=== PATIENT | male | born 1960 | race Caucasian/White ===

== ENCOUNTER 2019-04-12 17:38 | Emergency (ER) | payer OTHER ==
[~2019-04-12] VITALS: Ht 165.1 cm; Wt 59.9 kg
--- NOTE | 2019-04-12 18:38 | NUR ---
PT IS IN ROOM #2B. DR WILL EVALUATED THE PT.
[2019-04-12] MEDS ORDERED: ONDANSETRON ODT 4 MG TAB.RAPDIS ONE (18:58)
[2019-04-12] MEDS ORDERED: ONDANSETRON ODT 4 MG TAB.RAPDIS SL ONE (19:00)
[2019-04-12] MEDS ORDERED: DICYCLOMINE HCL 20 MG TABLET PO ONE (19:00)
[2019-04-12 19:08] LABS: *BLOOD, URINE NEGATIVE (NEGATIVE); *CLARITY,URINE SLIGHTLY CLOUDY (CLEAR); *COLOR,URINE YELLOW (YELLOW); *KETONES,URINE NEGATIVE (NEGATIVE); LEUKOCYTE ESTERASE ,URINE NEGATIVE (NEGATIVE); NITRITE, URINE NEGATIVE (NEGATIVE); PH,URINE 5.5 (5.0-8.0); UGLUCOSE NEGATIVE (NEGATIVE)
[2019-04-12 19:09] LABS: *BILIRUBIN,URIN 1+ (NEGATIVE)
[2019-04-12 19:10] LABS: BASOPHILS # (AUTO) 0.1 K/uL (0.0-8.0); EOSINOPHILS # (AUTO) 0.1 K/uL (0.0-0.7); EOSINOPHILS % (AUTO) 1.7 % (0.0-7.0); HEMATOCRIT 45.9 % (36.7-47.1); HEMOGLOBIN 15.6 g/dL (12.5-16.3); LYMPHOCYTES % (AUTO) 18.1 % (20.5-51.5); MEAN CORPUSCULAR HEMOGLOBIN 31.5 uug (23.8-33.4); MEAN CORPUSCULAR HGB CONC 34 g/dL (32.5-36.3); MONOCYTES # (AUTO) 0.8 K/uL (2.0-10.0); MONOCYTES % (AUTO) 14.6 % (0.0-11.0); NEUTROPHILS # (AUTO) 3.6 K/uL (1.8-8.9); NEUTROPHILS % (AUTO) 64.6 % (38.5-71.5); PLATELET COUNT (AUTO) 245 K/uL (152-348); RED BLOOD CELL COUNT(AUTO) 4.94 MIL/uL (4.06-5.63); WHITE BLOOD COUNT (AUTO) 5.6 K/uL (3.6-10.2)
[2019-04-12 19:13] LABS: BACTERIA,URINE FEW /HPF (NONE SEEN); RBC,URINE 0-3 /HPF (0-3); SQUAMOUS EPITHELIAL CELL,UR FEW /HPF (NONE SEEN); WBC,URINE 0-3 /HPF (0-3)
[2019-04-12 19:18] LABS: CARBON DIOXIDE 32 mmol/L (21-32); CHLORIDE 103 mmol/L (98-107); CREATININE 1.1 mg/dL (0.6-1.3); GLUCOSE 89 mg/dL (74-106); POTASSIUM 3.9 mmol/L (3.5-5.1); UREA NITROGEN, BLOOD 19 mg/dL (7-18)
[2019-04-12 19:23] LABS: ALANINE AMINOTRANSFERASE 30 U/L (16-63); ALKALINE PHOSPHATASE 83 U/L (50-136); ASPARTATE AMINOTRANSFERASE 19 U/L (15-37); BILIRUBIN,DIRECT < 0.1 mg/dL (0.0-0.2); BILIRUBIN,TOTAL 0.8 mg/dL (0.2-1.0); LIPASE 203 U/L (73-393); TOTAL PROTEIN, SERUM 7.4 g/dL (6.4-8.2)
--- NOTE | 2019-04-12 19:35 | NUR ---
Ultrasound at bedside.
--- NOTE | 2019-04-12 22:07 | NUR ---
Patient discharged to home in stable conditon. Written and verbal after care instructions given. Patient verbalizes understanding of instructions. Pt ambulated out of ER with steady gait, no acute signs of distress, VSS, all belongings taken.
[2019-04-12 22:08] VITALS: BP 128/73
== END 2019-04-12 22:08 | disposition home or self-care (01) ==
LOC: ER 17:47
DX: K80.80 Other cholelithiasis without obstruction (principal)
CPT/HCPCS: 36415; 83690; 85025; 93005; A4663; Q0162

== ENCOUNTER 2019-08-04 19:42 | Emergency (ER) | payer OTHER ==
[~2019-08-04] VITALS: Ht 170.2 cm; Wt 63.5 kg
--- NOTE | 2019-08-04 19:55 | NUR ---
Dr. Cross at bedside for MSE.
--- NOTE | 2019-08-04 20:30 | NUR ---
Xray at bedside.
--- NOTE | 2019-08-04 21:12 | NUR ---
Patient discharged to home in stable condition with son abel patient home. Written and verbal after care instructions given. Patient verbalizes understanding of instructions. Stressed follow up or return to ER for worsening s/s.
--- NOTE | 2019-08-04 21:12 | NUR ---
Crutches dispensed. Pt instructed on proper use of crutches. Patient able to demonstrate correct use of crutches.
[2019-08-04 21:13] VITALS: BP 130/77
== END 2019-08-04 21:13 | disposition home or self-care (01) ==
LOC: ER 19:44
DX: S92.355A Nondisplaced fracture of fifth metatarsal bone, left foot, initial encounter for closed fracture (principal); X58.XXXA Exposure to other specified factors, initial encounter; Y93.01 Activity, walking, marching and hiking; Y92.89 Other specified places as the place of occurrence of the external cause
CPT/HCPCS: 73630; A4663

== ENCOUNTER 2023-02-04 15:41 | Emergency (ER) | payer OTHER ==
[~2023-02-04] VITALS: Ht 165.1 cm; Wt 70.3 kg
[2023-02-04] MEDS ORDERED: CARB15DR12 OT (20:16)
[2023-02-04] MEDS ORDERED: CARB15DR63 LEFT EAR (20:16)
[2023-02-04 20:23] VITALS: BP 131/102; O2SAT 97
== END 2023-02-04 20:23 | disposition home or self-care (01) ==
LOC: ER 15:45
DX: H61.22 Impacted cerumen, left ear (principal)
CPT/HCPCS: A4606; A4663